=== PATIENT | male | born 1985 | race Two or more races ===

== ENCOUNTER 2025-01-25 18:14 | Emergency (ER) | payer BC ==
[~2025-01-25] VITALS: Ht 172.7 cm; Wt 68.1 kg
[2025-01-25 19:06] VITALS: BP 126/76; PULSE 100; RESP 15; O2SAT 100
[2025-01-25] MEDS ORDERED: PRED10TA23 PO (19:14)
--- NOTE | 2025-01-25 19:14 | Physician Documentation ---
History of Present Illness ~ Chief Complaint: Abnormal Stools Stated Complaint: COLITIS FLAIR UP Time Seen by MD: 19:09 Source: patient Mode of Arrival: POV Exam Limitations: no limitations HPI 38-year-old male with ulcerative colitis was instructed to come in due to his ulcerative colitis flare he just picked up his suppositories but has not even started any oral steroids. Patient had labs which shows chronic anemia his primary care advised him to come in due to his flare-up but has not even started oral steroids. Patient desires to start prednisone prior to any IV steroids. Medication Reconciliation Allergies: Coded Allergies: No Known Allergies (Unverified , 01/25/25) Scheduled Prednisone (Prednisone), 0 PO DAILY Past Medical History Past Medical History: *GI/HEPATOBILIARY* Past Surgical History: noncontributory Lives with: Family Lives In: Home Occupation: employed Review of Systems All Other Systems at this time: Reviewed and Negative Gastrointestinal: Reports: see HPI Physical Exam Physical Exam General: Alert, no apparent distress. HEENT: moist mucous membranes. Neck: Full range of motion. Respiratory: No respiratory distress speaking in full sentences Chest: No accessory muscle use. Cardiovascular: Appears well perfused Gastrointestinal: Soft mild generalized tenderness nondistended Neurologic: Oriented x4. Psychiatric: Normal mood and affect. Skin: Normal color, warm and dry. No edema, no ecchymosis. Progress Results/Orders Results/Orders Completed Orders - EARNESTINE PETERSON NP Prednisone Tablet (Prednisone Tablet) (01/25/25 19:15) Medications Received in ER Medications (Trade) Dose Ordered Sig/Noel Route PRN Reason Start Time Stop Time Status Last Admin Dose Admin (predniSONE tablet) 40 mg ONCE ONCE PO 01/25/25 19:15 01/25/25 19:16 DC 01/25/25 19:45 40 MG Vital Signs 01/25/25 01/25/25 19:06 19:41 Temp 98.4 98.4 Pulse 100 Resp 15 B/P (MAP) 126/76 Pulse Ox 100 Medical Decision Making Additional information obtaine: N/A Findings Patient has ulcerative colitis just recently picked up his suppositories for flare was not started on prednisone but was told by his primary care to just go to the ER and get IV steroids. Patient desires to start oral steroids prior to IV. Patient has close follow up with primary care denies dizziness headache shortness of breath Diff Dx GI Bleed:Consideration: Include: Diverticulosis, Diverticulitis, Gastritis, Inflammatory BD, Other Diff Dx Pain:Considerations: Include: Constipation, Gastritis, Gastroenteritis, GI hemorrhage, Inflammatory BD Diff Dx N/V/D:Considerations: Include: Other Diff Dx Rectal:Considerations: Unlikely: Fissure, Fistula, Foreign body, Impaction, Perirectal abscess, Prostatitis, Rectal prolapse, Subcutaneous abscess, Thrombosed hemorrhoid, Ulcer, UTI, Other Departure Time of Disposition: 19:12 Disposition: HOME / SELF CARE / HOMELESS Impression: Primary Impression: Ulcerative colitis Condition: Stable Discharge Instructions: Colitis Additional Instructions: Prednisone as prescribed and follow up with primary care if flare does not improve feel free to return to the ER Referrals: NO PRIMARY CARE PROVIDER (PCP) Prescriptions Prednisone (Prednisone) 10 Mg Tablet 0 PO DAILY, #42 TAB Take 4 tabs daily x4 days, then 3 daily x4 days 2 daily x4 days 1 daily x4 days 1/2 daily x4 days then STOP Prov: EARNESTINE PETERSON NP 01/25/25 Education Educated: Patient Educated regarding: diagnosis, treatment, need for follow up Signature Scribe Signature: No scribe Attestation: The note accurately reflects work and decisions made by me.Earnestine DINERO 01/25/25 19:14 EARNESTINE PETERSON NP Jan 25, 2025 19:14
[2025-01-25 19:41] VITALS: TEMP 98.4
== END 2025-01-25 19:54 | disposition home or self-care (01) ==
LOC: ER 18:16
DX: K51.90 Ulcerative colitis, unspecified, without complications (principal)
CPT/HCPCS: 99283; J7512